=== PATIENT | female | born 1985 | race Caucasian/White ===

== ENCOUNTER 2017-03-10 00:51 | Emergency (ER) | payer OTHER ==
[2017-03-10] MEDS ORDERED: NORMAL SALINE 1000 ML 1,000 ML IV PRN (01:01)
--- NOTE | 2017-03-10 01:08 | ER Document Report ---
ED General - General Stated Complaint: POSSIBLE OD Time Seen by Provider: 03/10/17 00:59 Notes: Patient is a 31-year-old female presents with complaint of overdose. She is brought in by the ambulance. He was cured says it report is that she overdosed on cervical and baclofen. is at bedside. He informed me that the patient did overdose encircling back from. He says she recently got of alcohol rehabilitation. He says in the past when she does have excess alcohol she will overdose in his medications. He says it went to the store on 7 PM. When he came back she was sleeping, slurring her words. They went to sleep. He checked on her and she was poorly responsive and drooling and therefore she he called a wants. He said she took the medications somewhere between 7 and 8 PM. He says she does not have access to any other medications or drugs that he is aware of. He is unsure exactly how many she took. TRAVEL OUTSIDE OF THE [place] IN LAST 30 DAYS: No - Related Data Allergies/Adverse Reactions: sulfamethoxazole [From Bactrim] Allergy (Verified 12/13/15 21:41) trimethoprim [From Bactrim] Allergy (Verified 12/13/15 21:41) Past Medical History - Social History Smoking Status: Unknown if Ever Smoked Frequency of alcohol use: recent alcohol rehabilitation. Drug Abuse: Prescription drugs Family History: Reviewed & Not Pertinent Pulmonary Medical History: Reports: Hx Asthma Psychiatric Medical History: Reports: Hx Depression Review of Systems - Review of Systems -: Yes ROS unobtainable due to patient's medical condition - Patient is poorly responsive. Physical Exam - Vital signs Vitals: Resp 10 L 03/10/17 00:55 - Notes Notes: General Appearance: Well nourished, somnolent. When I did a sternal rub patient grabbed her arm and pushes it away. She will not follow verbal commands however she will pushes away and fight us some during exam. Vitals: reviewed, See vital signs table. Head: no swelling or tenderness to the head Eyes: PERRL, EOMI, Conjuctiva clear Mouth: No decreasd moisture Throat: No tonsillar inflammation, No airway obstruction, No lymphadenopathy Lungs: No wheezing, No rales, No rhonci, No accessory muscle use, good air exchange bilaterally. Heart: Tachycardic rate, Regular rythm, No murmur, no rub Abdomen: Normal BS, soft, No rigidity, No abdominal tenderness, No guarding, no rebound, no abdominal masses, no organomegaly Extremities: strength 5/5 in all extremities, good pulses in all extremities, no swelling or tenderness in the extremities, no edema. Skin: warm, dry, appropriate color, no rash Neuro: Somnolent. Patient does partially awaken with physical stimulation. She does move all extremities on her own. Remainder of her exam is unobtainable due to the patient not being cooperative and not following commands. Course - Re-evaluation Re-evalutation: 03/10/17 03:26 Patient continued become more more unresponsive. Now she would not respond to painful stimuli at all. My concern is that she is unable to protect her airway being that she will not respond at all to painful stimuli. We did elect to intubate the patient. I did speak with the hospitalist who says that we will probably have to transfer the patient because we do not have any ICU beds available. - Vital Signs Vital signs: Temp Pulse Resp BP Pulse Ox 98.8 F 14 130/68 H 97 03/10/17 03:56 03/10/17 03:56 03/10/17 03:56 03/10/17 03:56 - Laboratory Result Diagrams: 03/10/17 00:55 03/10/17 00:55 Laboratory results interpreted by me: 03/10/17 03/10/17 03/10/17 00:55 00:55 01:25 WBC 3.9 L Hct 35.2 L Monocytes % 1.9 L Sodium 146.7 H Carbon Dioxide 21 L Anion Gap 21 H Creatinine 1.73 H Est GFR ( Amer) 41 L Est GFR (Non-Af Amer) 34 L Glucose 167 H Urine Ketones TRACE H Salicylates < 1.0 L Acetaminophen < 10 L - EKG Interpretation by Me Additional EKG results interpreted by me: 03/10/17 01:08 EKG is reviewed and interpreted by me. EKG shows sinus tachycardia with rate of high [address] segment elevation or depression. No ischemic T wave inversions. LA interval, QRS duration are within normal range. QTc interval slightly prolonged. No old EKG available for comparison. - Transfer of Care Notes: 05/15/17 04:16 I did speak with Dr. Duran, die cutter apprentice [facility] , who agrees except patient for transfer. Patient is on the ventilator. She is on sedating medications. After intubation she did start to wake some. We have had the placement of the medications to help keep her sedated. Patient required intubation because she was somewhat the point where she does not respond to any painful stimuli and my fear was that she would not have been able to protect her airway to prevent aspiration if she were to vomit. I did initially speak with poison control. He said most likely patient to overdose on back on with her presenting symptoms and up being in a coma for approximately 2 days. He said that sometimes they can be mistaken is brain because they will lose reflexes. They're actually not brain . Symptoms usually resolve after 2 days. They said to keep the potassium magnesium within high normal range. They recommended to monitor the QTc interval. Dictation of this chart was performed using voice recognition software; therefore, there may be some unintended grammatical errors. 03/10/17 04:16 Procedures - Intubation Orotracheal Medications: Etomidate, Succinylcholine Intubation method: Orotracheal Blade size: 3 Equipment used: Glidescope ETT size: 7.5 Breath Sounds after Intubation: Equal End tidal CO2 confirmed: Yes Post Intubation Xray: Yes Intubation Complications: No complications Notes: 03/10/17 04:18 Intubation perforemd by GAGE Ham and was directly supervised by me. Critical Care Note - Critical Care Note Total time excluding time spent on procedures (mins): 45 Comments: Critical care time for this patient not including time spent on procedures is approximately 45 minutes due to frequent evaluations to monitor patient's protection of airway. Also due to discussions with specialists as well as patient's family. Also management of the date of medications once she was on the ventilator.
[2017-03-10 01:16] LABS: ABSOLUTE MONOCYTES (AUTO) 0.1 10^3/uL (0.1-1.4); ABSOLUTE NEUT (AUTO) 2.8 10^3/uL (1.7-8.2); BASOPHILS % (AUTO) 0.4 % (0-2); HEMATOCRIT 35.2 % (36.0-47.0); HGB HCT DIFFERENCE 0.8; LYMPHOCYTES % (AUTO) 25.9 % (13-45); MEAN CORPUSCULAR HEMOGLOBIN 31.6 pg (27.0-33.4); MEAN CORPUSCULAR HGB CONC 34.2 g/dL (32.0-36.0); MEAN CORPUSCULAR VOLUME 92 fl (80-97); MONOCYTES % (AUTO) 1.9 % (3-13); RED CELL DISTRIBUTION WIDTH 13.3 % (11.5-14.0); SEGMENTED NEUTROPHILS % (AUTO) 71.8 % (42-78); WHITE BLOOD COUNT 3.9 10^3/uL (4.0-10.5)
[2017-03-10 01:36] LABS: ALANINE AMINOTRANSFERASE 26 U/L (9-52); ALBUMIN 4.3 g/dL (3.5-5.0); ALCOHOL 15 mg/dL (NONE DETECTED); ALKALINE PHOSPHATASE 62 U/L (38-126); ANION GAP 21 (5-19); ASPARTATE AMINO TRANSFERASE 25 U/L (14-36); BILIRUBIN,DIRECT 0.3 mg/dL (0.0-0.4); BILIRUBIN,TOTAL 0.3 mg/dL (0.2-1.3); BLOOD UREA NITROGEN 10 mg/dL (7-20); CALCIUM 8.6 mg/dL (8.4-10.2); CARBON DIOXIDE 21 mmol/L (22-30); CHLORIDE 105 mmol/L (98-107); CREATININE RESULT 1.73 mg/dL (0.52-1.25); GLUCOSE 167 mg/dL (75-110); POTASSIUM 4.5 mmol/L (3.6-5.0); SODIUM 146.7 mmol/L (137-145); TOTAL PROTEIN 7.4 g/dL (6.3-8.2)
[2017-03-10 01:40] LABS: APPEARANCE,URINE CLEAR; BILIRUBIN,URINE NEGATIVE (NEGATIVE); GLUCOSE, URINE NEGATIVE (NEGATIVE); KETONES,URINE TRACE mg/dL (NEGATIVE); LEUKOCYTE ESTERASE,URINE NEGATIVE (NEGATIVE); NITRITE,URINE NEGATIVE (NEGATIVE); PROTEIN,URINE NEGATIVE (NEGATIVE); UROBILINOGEN,URINE NEGATIVE mg/dL (<2.0)
[2017-03-10 01:52] LABS: URINE BARBITURATES SCREEN NEGATIVE; URINE METHADONE SCREEN NEGATIVE; URINE OPIATES LOW NEGATIVE; URINE PHENCYCLIDINE SCREEN NEGATIVE
[2017-03-10] MEDS ORDERED: ETOMIDATE INJ/PF 20 MG/10 ML SDV IV ONE (02:46)
[2017-03-10] MEDS ORDERED: MIDAZOLAM HCL 100 ML IV ONE (02:59)
[2017-03-10] MEDS ORDERED: PROPOFOL INJ 200 MG/20 ML VIAL IV ONE ×2 (03:16→04:03)
[2017-03-10] MEDS ORDERED: MIDAZOLAM HCL 100 ML IV PRN (03:17)
[2017-03-10] MEDS ORDERED: MIDAZOLAM 2 MG/2 ML INJ IV ONE (03:17)
[2017-03-10] MEDS ORDERED: PROPOFOL 100 ML IV PRN (03:17)
[2017-03-10] MEDS ORDERED: PROPOFOL 100 ML IV ONE (03:20)
[2017-03-10 05:21] VITALS: BP 117/55
--- NOTE | 2017-03-10 08:38 | EKG REPORT ---
SEVERITY:- BORDERLINE ECG - SINUS TACHYCARDIA BORDERLINE PROLONGED QT INTERVAL : Confirmed by: Mere Reyes 10-Mar-2017 08:37:26
[2017-03-10] MEDS ORDERED: SUCCINYLCHOLINE CHLORIDE INJ 200 MG/10 ML VIAL ONE (09:23)
== END 2017-03-10 04:30 | disposition short-term general hospital (02) ==
LOC: ER 00:51
PROC: 0BH17EZ Insertion of Endotracheal Airway into Trachea, Via Natural or Artificial Opening (ICD-10-PCS; principal; 2017-03-10)
DX: T42.8X2A Poisoning by antiparkinsonism drugs and other central muscle-tone depressants, intentional self-harm, initial encounter (principal); T43.592A Poisoning by other antipsychotics and neuroleptics, intentional self-harm, initial encounter; R47.81 Slurred speech; Y92.009 Unspecified place in unspecified non-institutional (private) residence as the place of occurrence of the external cause; Z88.3 Allergy status to other anti-infective agents
CPT/HCPCS: 93005; 99291; 51702; 36415; 80307 ×4; 83735; 84703; 85025; 80053; 81001; 71010; 93010; 94003; 31500; J0330; J3490

== ENCOUNTER 2017-04-25 12:15 | Emergency (ER) | payer OTHER ==
[2017-04-25] MEDS ORDERED: NORMAL SALINE 1000 ML 1,000 ML IV ONE ×2 (12:29)
[2017-04-25 12:51] LABS: ABSOLUTE LYMPHOCYTES (AUTO) 1.5 10^3/uL (0.5-4.7); ABSOLUTE MONOCYTES (AUTO) 0.4 10^3/uL (0.1-1.4); ABSOLUTE NEUT (AUTO) 3.7 10^3/uL (1.7-8.2); BASOPHILS % (AUTO) 0.6 % (0-2); HEMATOCRIT 35.7 % (36.0-47.0); HEMOGLOBIN 12.3 g/dL (12.0-15.5); HGB HCT DIFFERENCE 1.2; LYMPHOCYTES % (AUTO) 26.7 % (13-45); MEAN CORPUSCULAR HEMOGLOBIN 30.9 pg (27.0-33.4); MEAN CORPUSCULAR HGB CONC 34.3 g/dL (32.0-36.0); MEAN CORPUSCULAR VOLUME 90 fl (80-97); MONOCYTES % (AUTO) 6.5 % (3-13); RED BLOOD COUNT 3.97 10^6/uL (3.72-5.28); RED CELL DISTRIBUTION WIDTH 13.6 % (11.5-14.0); SEGMENTED NEUTROPHILS % (AUTO) 66.2 % (42-78); VENOUS BLOOD BASE EXCESS 4.7 mmol/L; VENOUS BLOOD HCO3 27.9 mmol/L (20-32); VENOUS BLOOD PCO2 36.3 mmHg (35-63); VENOUS BLOOD PH 7.5 (7.30-7.42); WHITE BLOOD COUNT 5.7 10^3/uL (4.0-10.5)
[2017-04-25 13:12] LABS: ALANINE AMINOTRANSFERASE 28 U/L (9-52); ALBUMIN 4.6 g/dL (3.5-5.0); ALKALINE PHOSPHATASE 68 U/L (38-126); ANION GAP 14 (5-19); ASPARTATE AMINO TRANSFERASE 26 U/L (14-36); BILIRUBIN,DIRECT 0.3 mg/dL (0.0-0.4); BILIRUBIN,TOTAL 0.4 mg/dL (0.2-1.3); BLOOD UREA NITROGEN 8 mg/dL (7-20); CALCIUM 8.9 mg/dL (8.4-10.2); CARBON DIOXIDE 27 mmol/L (22-30); CHLORIDE 103 mmol/L (98-107); CREATININE RESULT 0.61 mg/dL (0.52-1.25); GLUCOSE 108 mg/dL (75-110); LIPASE 125.6 U/L (23-300); MAGNESIUM 1.8 mg/dL (1.6-2.3); POTASSIUM 3.8 mmol/L (3.6-5.0); SODIUM 144.1 mmol/L (137-145); TOTAL PROTEIN 7.9 g/dL (6.3-8.2)
[2017-04-25 13:16] LABS: ALCOHOL < 10 mg/dL (NONE DETECTED)
[2017-04-25 14:23] LABS: URINE BARBITURATES SCREEN NEGATIVE; URINE METHADONE SCREEN NEGATIVE; URINE OPIATES LOW NEGATIVE; URINE PHENCYCLIDINE SCREEN NEGATIVE
[2017-04-25 14:45] LABS: APPEARANCE,URINE CLOUDY; BILIRUBIN,URINE NEGATIVE (NEGATIVE); GLUCOSE, URINE NEGATIVE (NEGATIVE); KETONES,URINE 20 mg/dL (NEGATIVE); LEUKOCYTE ESTERASE,URINE NEGATIVE (NEGATIVE); NITRITE,URINE NEGATIVE (NEGATIVE); PROTEIN,URINE NEGATIVE (NEGATIVE); URINE SPECIFIC GRAVITY 1.006; UROBILINOGEN,URINE NEGATIVE mg/dL (<2.0)
[2017-04-25] MEDS ORDERED: ONDANSETRON HCL INJ/PF 4 MG/2 ML SDV IV ONE (16:11)
[2017-04-25] MEDS ORDERED: PROCHLORPERAZINE EDISYLATE INJ 10 MG/2 ML VIAL IV ONE (16:11)
[2017-04-25] MEDS ORDERED: LORAZEPAM 1 MG TABLET PO ONE (16:16)
--- NOTE | 2017-04-25 19:30 | ER Document Report ---
ED General - General Chief Complaint: Psych Problem Stated Complaint: PSYCH EVALUATION Time Seen by Provider: 04/25/17 12:24 TRAVEL OUTSIDE OF THE [place] IN LAST 30 DAYS: No - HPI Patient complains to provider of: Isopropyl alcohol ingestion and suicide attempt Notes: Plan after drinking isopropyl alcohol for the last 2 days. Patient states this was an attempt to harm herself. Patient denies any other coingestions. Patient has a history of overdoses in the past requiring transfer to NICU admissions along with intubations. Patient had multiple psych evaluation to the facility in the past to as well for suicidal ideation. Patient upon arrival , however easily arousable once aroused GCS is 15. Patient denies any other complaints. - Related Data Allergies/Adverse Reactions: sulfamethoxazole [From Bactrim] Allergy (Verified 12/13/15 21:41) trimethoprim [From Bactrim] Allergy (Verified 12/13/15 21:41) Past Medical History - Social History Smoking Status: Current Every Day Smoker Chew tobacco use (# tins/day): No Family History: Reviewed & Not Pertinent Pulmonary Medical History: Reports: Hx Asthma Psychiatric Medical History: Reports: Hx Depression Review of Systems - Review of Systems Constitutional: No symptoms reported EENT: No symptoms reported Cardiovascular: No symptoms reported Respiratory: No symptoms reported Gastrointestinal: No symptoms reported Genitourinary: No symptoms reported Female Genitourinary: No symptoms reported Musculoskeletal: No symptoms reported Skin: No symptoms reported Hematologic/Lymphatic: No symptoms reported Neurological/Psychological: Suicidal ideation -: Yes All other systems reviewed and negative Physical Exam - Vital signs Vitals: Resp BP Pulse Ox 10 L 121/70 98 04/25/17 12:25 04/25/17 12:25 04/25/17 12:25 Interpretation: Normal - General General appearance: Appears well, Alert - HEENT Head: Normocephalic, Atraumatic Eyes: Normal Pupils: PERRL - Respiratory Respiratory status: No respiratory distress Chest status: Nontender Breath sounds: Normal Chest palpation: Normal - Cardiovascular Rhythm: Regular Heart sounds: Normal auscultation Murmur: No - Abdominal Inspection: Normal Distension: No distension Bowel sounds: Normal Tenderness: Nontender Organomegaly: No organomegaly - Back Back: Normal, Nontender - Extremities General upper extremity: Normal inspection, Nontender, Normal color, Normal ROM , Normal temperature General lower extremity: Normal inspection, Nontender, Normal color, Normal ROM , Normal temperature, Normal weight bearing. No: Antonella's sign - Neurological Neuro grossly intact: Yes Cognition: Normal Orientation: AAOx4 Ashley Coma Scale Eye Opening: Spontaneous Ashley Coma Scale Verbal: Oriented [place] Coma Scale Motor: Obeys Commands Ashley Coma Scale Total: 15 Speech: Normal Motor strength normal: LUE, RUE, LLE, RLE Sensory: Normal - Psychological Associated symptoms: Normal affect, Normal mood - Skin Skin Temperature: Warm Skin Moisture: Dry Skin Color: Normal Course - Re-evaluation Re-evalutation: 04/25/17 19:29 Patient laboratory studies reveal a elevated serum osmole is causing a osmolar gap more likely due to isopropyl alcohol ingestion. Discussed with portion control agrees with supportive measures at this time. Patient was tachycardic started having nausea vomiting antiemetics and Ativan were given to the patient patient does have a history of alcohol abuse in the past will continue to monitor for any signs of other further details however patient is medically cleared this time for psychiatric evaluation. - Vital Signs Vital signs: Temp Pulse Resp BP Pulse Ox 97.8 F 107 H 17 116/70 100 04/25/17 12:27 04/25/17 12:27 04/25/17 14:01 04/25/17 14:00 04/25/17 14:01 - Laboratory Result Diagrams: 04/25/17 12:30 04/25/17 12:30 Laboratory results interpreted by me: 04/25/17 04/25/17 04/25/17 12:30 12:30 12:30 Hct 35.7 L VBG pH Serum Osmolality 354 H Urine Ketones Salicylates < 1.0 L Acetaminophen < 10 L 04/25/17 04/25/17 12:30 13:36 Hct VBG pH 7.50 H Serum Osmolality Urine Ketones 20 H Salicylates Acetaminophen Critical Care Note - Critical Care Note Total time excluding time spent on procedures (mins): 35 Comments: multiple Evaluations for isopropyl alcohol ingestion Discharge - Discharge Clinical Impression: Isopropyl alcohol ingestion, Suicidal ideation Nausea & vomiting Qualifiers: Vomiting type: unspecified Vomiting Intractability: unspecified Qualified Code( s): R11.2 - Nausea with vomiting, unspecified Condition: Good Disposition: PSYCH HOSP/UNIT
--- NOTE | 2017-04-25 20:56 | EKG REPORT ---
SEVERITY:- ABNORMAL ECG - SINUS TACHYCARDIA NONSPECIFIC REPOL ABNORMALITY, DIFFUSE LEADS : Confirmed by: Mere Reyes 25-Apr-2017 20:56:07
[2017-04-25] MEDS: LORAZEPAM 1 MG TABLET PO PRN (22:03)
[2017-04-26] MEDS: LORAZEPAM 1 MG TABLET PO PRN ×3 (06:08→15:54)
[2017-04-26] MEDS ORDERED: ACETAMINOPHEN 325 MG TABLET PO ONE (07:33)
--- NOTE | 2017-04-26 07:34 | ER Document Report ---
Doctor's Note Notes: 04/26/17 07:33 notified that patient was tachycardic at rest, she is at 99 on the monitor, denies any anxiety, sob, chest pain. admits to a mild headache, will give her tylenol
--- NOTE | 2017-04-26 10:18 | ER Document Report ---
ED Psych Disorder / Suicide - General TRAVEL OUTSIDE OF THE [place] IN LAST 30 DAYS: No <KIMLILY - Last Filed: 04/26/17 10:06> <ALMAZ DE LA VEGA - Last Filed: 04/26/17 12:52> - General Chief Complaint: Psych Problem Stated Complaint: PSYCH EVALUATION Time Seen by Provider: 04/25/17 12:24 - HPI Notes: pt presents to the ED today via ems for altered mental status. Per ems pt family called them this morning due to pt drinking rubbing alcohol for the past two days. pt currently confused but alert at this time. pt poor historian. per ems pt has a hx of suicidal ideations and was previously seen here for drinking rubbing alcohol. Clinician attempted phone call to patient's , Kendrick Cruz [phone], at [phone] no answer; left message. Patient placed on IVC at attending physician's request. Conducted evaluation 04/26/2017: Patient disclosed that she has been sober for 2 months and prior to that was in [facility] 1 [facility]. She states her had went to visit his body and his parents were here visiting. She states it was overwhelming and her is normally her "rock." Continued disclosed that she drank the rubbing alcohol because she had nothing else around to drink. Patient denies drinking rubbing alcohol was an attempt to hurt herself. Patient states she has drank rubbing alcohol in the past. She can she does not report taking any comments of wanting to hurt herself however it does not surprise her because she seems to say that she wants to hurt herself when she is drunk. She states that she could be having the best day started drinking and then stated that she wants to kill herself. Patient adamantly denies suicidal and homicidal ideation; "this was not a cry for help or me trying to get attention. Trying to forget for little bit." Patient disclosed that she does see mental health outpatient and goes to AA and NA twice a day. States her always drives her so cannot remember the name that she goes to for mental health however does know she goes to AA and NA at [facility]. Discussed optimism that she will sobriety again and states she hopes this is just a "bump. " Patient is alert and orientated to person, place, and time and circumstance. Mood is euthymic with congruent affect. Patient denies suicidal homicidal ideation. Patient denies auditory visual hallucinations patient is not demonstrating any behavior congruent with responding to internal stimuli. No delusions are noted. Thought process is currently organized and linear. Conversational speech was, tone and prosody. Eye contact was well-maintained. His abilities appear to be within average range. Attention and concentration are good. Insight, judgment and impulse control are historically poor. 303.90 (F10.20) alcohol use disorder; severe Impression\\plan: Patient is recommended for rescind of IVC and is considered psychiatrically clear for discharge. Patient no longer meets IVC criteria per [place] GS 122C. Patient had achieved 2 months sobriety after 1 month treatment however ended up having a lapse; since she was unable to obtain any alcohol, she drank rubbing alcohol. Patient denies suicidal/homicidal ideation. Patient is recommended to continue outpatient substance abuse treatment through [facility] and continues mental health services by her outpatient provider. Dr. Sanchez was consulted on the care and management of this patient; attending physician is agreement with recommendations and disposition. (LILY KIM) - Related Data Allergies/Adverse Reactions: sulfamethoxazole [From Bactrim] Allergy (Verified 12/13/15 21:41) trimethoprim [From Bactrim] Allergy (Verified 12/13/15 21:41) Past Medical History - Social History Smoking Status: Current Every Day Smoker Chew tobacco use (# tins/day): No Family History: Reviewed & Not Pertinent Pulmonary Medical History: Reports: Hx Asthma Psychiatric Medical History: Reports: Hx Depression <LILY KIM - Last Filed: 04/26/17 10:06> Course - Laboratory Result Diagrams: 04/25/17 12:30 04/25/17 12:30 <LILY KIM - Last Filed: 04/26/17 10:06> - Laboratory Result Diagrams: 04/26/17 11:45 04/26/17 11:45 <ALMAZ DE LA VEGA - Last Filed: 04/26/17 12:52> - Vital Signs Vital signs: Temp Pulse Resp BP Pulse Ox 98.5 F 107 H 22 H 130/78 H 96 04/26/17 06:00 04/25/17 12:27 04/26/17 06:01 04/26/17 06:11 04/26/17 06:11 - Laboratory Laboratory results interpreted by me: 04/25/17 04/25/17 04/25/17 12:30 12:30 12:30 RBC Hgb Hct 35.7 L VBG pH BUN Serum Osmolality 354 H Urine Ketones Salicylates < 1.0 L Acetaminophen < 10 L 04/25/17 04/25/17 04/26/17 12:30 13:36 11:45 RBC 3.63 L Hgb 11.3 L Hct 32.8 L VBG pH 7.50 H BUN Serum Osmolality Urine Ketones 20 H Salicylates Acetaminophen 04/26/17 04/26/17 11:45 11:45 RBC Hgb Hct VBG pH BUN 5 L Serum Osmolality 318 H Urine Ketones Salicylates Acetaminophen Discharge <LILY KIM - Last Filed: 04/26/17 10:06> <ALMAZ DE LA VEGA - Last Filed: 04/26/17 12:52> - Discharge Clinical Impression: Isopropyl alcohol ingestion, Alcohol abuse Nausea & vomiting Qualifiers: Vomiting type: unspecified Vomiting Intractability: unspecified Qualified Code( s): R11.2 - Nausea with vomiting, unspecified Clinical Impression: (Ruled Out): Suicidal ideation Condition: Good Disposition: HOME, SELF-CARE Additional Instructions: CHRONIC ALCOHOLISM and ALCOHOL ABUSE: Your evaluation reveals evidence of chronic alcoholism, an addiction to alcohol. The tendency to alcoholism may be inherited. Chronic use of alcohol weakens muscles, causes fatty deposits in the liver , damages the stomach, makes you more prone to infections, and can cause defects in unborn children. In the long run, brain atrophy and cirrhosis of the liver result. You are also at greater risk for certain types of cancer, such as cancer of the mouth, throat, stomach, and liver. Counselling services are available to help you. In-hospital treatment programs often help. Support groups such as Alcoholics Anonymous can be very useful in beating this addiction. Your physician can make a referral for you. As alcoholics often are prone to other addictions, you should discuss your use of any other medications with the doctor. ALCOHOL WITHDRAWAL: Your symptoms are caused by alcohol withdrawal. After a period of frequent drinking, the brain and body are changed by the alcohol. When you quit or reduce your drinking, the nervous system becomes unstable. Withdrawal symptoms can start a few hours after your last drink, but sometimes don't begin until a couple of days later. Symptoms can include shakiness, sweating, insomnia, nausea , vomiting, fearfulness, hallucinations, and seizures. In addition to the acute effects of alcohol withdrawal, we often have to deal with the medical effects of alcoholism. These problems often include dehydration, stomach irritation, intestinal bleeding, low blood sugar, liver disease, and pancreas inflammation. Treatment for alcohol withdrawal includes mild sedatives, vitamins, and fluids. You need to be with someone who can help if symptoms become severe. Many patients can withdraw at home. Admission to the hospital or a detox facility may be necessary if withdrawal symptoms are severe and uncontrollable. Abstaining from alcohol is the only effective long-term treatment. If you start drinking again, you will not be able to control yourself after the first drink. Treatment programs are available. In addition, many alcoholics benefit from Alcoholics Anonymous or other support groups available through your counselor or latter day mixing tumbler operator. [employer]-[facility] and [employer] are support groups for friends and family members of an alcoholic. Go to the emergency room if you develop persistent vomiting, severe abdominal pain, fever, shortness of breath, hallucinations, uncontrollable tremors, or seizures. FOLLOW-UP CARE: Please continue your outpatient services through your home mental health provider and with your substance abuse treatment provider, KAREEM, on 04/28/2017 at if you experience worsening or a significant change in your symptoms, notify the physician immediately or return to the Emergency Department at any time for re-evaluation. Referrals: [facility] [Outside] - 04/28/17
--- NOTE | 2017-04-26 11:13 | ER Document Report ---
Doctor's Note Notes: 04/26/17 11:13 Rounds: Chart reviewed and patient interview. Patient appears to be very cooperative and calm. Says she drank the rubbing alcohol because it was the only thing she had. Says she has not been drinking alcohol for the past 2 months. Patient not sure if she took the alcohol for harmful intent or just to get drunk. Feeling much better now and no longer nauseated or vomiting. The only significant abnormal lab study was serum osmolality which was somewhat elevated. I am going to repeat her lab studies and if they are okay, I think the patient will be medically cleared. Vital signs are all normal this morning. Otherwise, appears to be medically stable for transfer or discharge. Anne Marie Brian MD 04/26/17 13:59 Repeat CBC, comp 12, serum osmolality, all essentially normal. Although the osmolality remains slightly elevated it is significantly lower than it was on her initial lab assessment. Patient is medically stable for transfer or discharge. CARLOS EDUARDO
[2017-04-26 11:55] LABS: ABSOLUTE LYMPHOCYTES (AUTO) 1.7 10^3/uL (0.5-4.7); ABSOLUTE MONOCYTES (AUTO) 0.6 10^3/uL (0.1-1.4); ABSOLUTE NEUT (AUTO) 3.1 10^3/uL (1.7-8.2); BASOPHILS % (AUTO) 0.8 % (0-2); HEMATOCRIT 32.8 % (36.0-47.0); HEMOGLOBIN 11.3 g/dL (12.0-15.5); HGB HCT DIFFERENCE 1.1; LYMPHOCYTES % (AUTO) 31.8 % (13-45); MEAN CORPUSCULAR HEMOGLOBIN 31.1 pg (27.0-33.4); MEAN CORPUSCULAR HGB CONC 34.4 g/dL (32.0-36.0); MEAN CORPUSCULAR VOLUME 90 fl (80-97); MONOCYTES % (AUTO) 10.8 % (3-13); RED BLOOD COUNT 3.63 10^6/uL (3.72-5.28); RED CELL DISTRIBUTION WIDTH 13.4 % (11.5-14.0); SEGMENTED NEUTROPHILS % (AUTO) 56.6 % (42-78); WHITE BLOOD COUNT 5.4 10^3/uL (4.0-10.5)
[2017-04-26 12:13] LABS: ALANINE AMINOTRANSFERASE 29 U/L (9-52); ALBUMIN 4.4 g/dL (3.5-5.0); ALKALINE PHOSPHATASE 60 U/L (38-126); ANION GAP 12 (5-19); ASPARTATE AMINO TRANSFERASE 20 U/L (14-36); BILIRUBIN,DIRECT 0.2 mg/dL (0.0-0.4); BILIRUBIN,TOTAL 0.3 mg/dL (0.2-1.3); BLOOD UREA NITROGEN 5 mg/dL (7-20); CALCIUM 9.2 mg/dL (8.4-10.2); CARBON DIOXIDE 28 mmol/L (22-30); CHLORIDE 101 mmol/L (98-107); GLUCOSE 104 mg/dL (75-110); LIPASE 156.3 U/L (23-300); POTASSIUM 3.9 mmol/L (3.6-5.0); TOTAL PROTEIN 7.6 g/dL (6.3-8.2)
[2017-04-26 19:28] VITALS: BP 131/74
== END 2017-04-26 19:29 | disposition home or self-care (01) ==
LOC: ER 12:15
DX: T51.2X1A Toxic effect of 2-Propanol, accidental (unintentional), initial encounter (principal); R11.2 Nausea with vomiting, unspecified; R51 Headache; F10.10 Alcohol abuse, uncomplicated; R00.0 Tachycardia, unspecified; F17.200 Nicotine dependence, unspecified, uncomplicated; J45.909 Unspecified asthma, uncomplicated; Z88.1 Allergy status to other antibiotic agents
CPT/HCPCS: 93005; 99284; 96361; 51701; 96374; 96375; 36415; 80307 ×4; 83690; 83735; 83930; 85025; 81025; 80053; 81001; 82803; 83605; 93010; J0780; J2405; J7030

== ENCOUNTER 2017-06-04 21:54 | Emergency (ER) | payer OTHER ==
[2017-06-04] MEDS ORDERED: DIPH/PERTUSS(ACELL)/TETANUS VAC/PF 0.5 ML SYR (>=10YO) IM ONE (23:05)
[2017-06-04] MEDS ORDERED: LIDOCAINE 1% INJ-PF (10 MG/ML) 30 ML SDV INJ ONE (23:06)
--- NOTE | 2017-06-04 23:08 | ER Document Report ---
ED General - General Chief Complaint: Suicidal Ideation Stated Complaint: SUICIDAL IDEATIONS Time Seen by Provider: 06/04/17 22:55 Notes: Patient is a 31-year-old female who presents with complaints of self cutting. She denies being suicidal but says that she did not hurt herself and cutting. She can argue with the and then got an argument with her 's ex- girlfriend on the phone. She became very upset and cut herself. She does have a history of depression. She is on Effexor. Last tetanus shot was 7 years ago. She has no other complaints at this time. TRAVEL OUTSIDE OF THE [place] IN LAST 30 DAYS: No - Related Data Allergies/Adverse Reactions: sulfamethoxazole [From Bactrim] Allergy (Verified 06/04/17 22:28) trimethoprim [From Bactrim] Allergy (Verified 06/04/17 22:28) Home Medications: Current Home Medications Venlafaxine HCl [Venlafaxine HCl ER] 1 cap PO QAM 06/04/17 [History] Past Medical History - Social History Smoking Status: Unknown if Ever Smoked Frequency of alcohol use: None Drug Abuse: None Family History: Reviewed & Not Pertinent Patient has suicidal ideation: Yes Pulmonary Medical History: Reports: Hx Asthma Renal/ Medical History: Denies: Hx Peritoneal Dialysis Psychiatric Medical History: Reports: Hx Depression Review of Systems - Review of Systems Notes: My Normal Review Basic REVIEW OF SYSTEMS: CONSTITUTIONAL : Denies fever, chills, or sweats. Denies recent illness. EENT: Denies eye, ear, throat, or mouth pain or symptoms. Denies nasal or sinus congestion. RESPIRATORY: Denies cough, cold, or chest congestion. Denies shortness of breath, difficulty breathing, or wheezing. GASTROINTESTINAL: Denies abdominal pain. Denies nausea, vomiting, or diarrhea. MUSCULOSKELETAL: Denies neck or back pain or joint pain or swelling. SKIN: Denies rash or skin lesions. NEUROLOGICAL: Denies altered mental status or loss of consciousness. Denies headache. Denies weakness or paralysis or loss of use of either side. Denies problems with gait or speech. Denies sensory or motor loss. PSYCHIATRIC: Depression ALL OTHER SYSTEMS REVIEWED AND NEGATIVE. Physical Exam - Vital signs Vitals: Temp Pulse Resp BP Pulse Ox 98.3 F 96 15 124/71 97 06/04/17 22:29 06/04/17 22:29 06/04/17 22:29 06/04/17 22:29 06/04/17 22:29 - Notes Notes: General Appearance: Well nourished, alert, cooperative, no acute distress, no obvious discomfort. Vitals: reviewed, See vital signs table. Head: no swelling or tenderness to the head Eyes: PERRL, EOMI, Conjuctiva clear Mouth: No decreasd moisture Lungs: No wheezing, No rales, No rhonci, No accessory muscle use, good air exchange bilaterally. Heart: Normal rate, Regular rythm, No murmur, no rub Extremities: strength 5/5 in all extremities, good pulses in all extremities, multiple lacerations and right forearm. 3 will require sutures. The rest are superficial and do not require sutures. Laceration #1 is approximately 2 cm in length. Goes through just the dermis itself. Subcutaneous fat is visualized but does not appear to be penetrated. Laceration #2 is 1 cm in length. Laceration is just through the dermis. Laceration #3 is also 1 cm in length. It is also just to the dermis. No active bleeding., no edema. Patient is able to move all fingers in her hand without difficulty. She is good distal sensation. Good opposition of thumb with all fingers. Good flexion-extension. No neuro muscular deficits. Skin: warm, dry, appropriate color, no rash Neuro: speech clear, oriented x 3, normal affect, responds appropriately to questions. Course - Re-evaluation Re-evalutation: 06/05/17 06:11 I eventually spoke with the patient's . The patient's says that the patient's is not forthcoming as he feels should be. He says that he thinks that she is truly suicidal. He said that the car she admitted to him that she was suicidal. He says that she is unable to tolerate her emotional situations well and goes straight to trying to hurt herself. She says that this is the second time in 2 weeks that she is done something to try to hurt herself. At this time patient is medically stable for psychiatric evaluation. At this time patient is voluntary and does agree to stay and see psychiatry. She says that she wants to leave before psychiatry evaluates her she may need to be placed on involuntary commitment paperwork. Dictation of this chart was performed using voice recognition software; therefore, there may be some unintended grammatical errors. - Vital Signs Vital signs: Temp Pulse Resp BP Pulse Ox 97.8 F 84 16 122/73 98 06/05/17 05:57 06/05/17 05:57 06/05/17 05:57 06/05/17 05:57 06/05/17 05:57 - Laboratory Result Diagrams: 06/05/17 06:00 06/05/17 06:00 Laboratory results interpreted by me: 06/04/17 06/05/17 23:51 06:00 Hct 34.4 L Urine Ketones TRACE H - EKG Interpretation by Me Additional EKG results interpreted by me: 06/05/17 01:40 EKG is reviewed and interpreted by me. EKG shows normal sinus rhythm with rate of [address] segment elevation or depression. No ischemic T-wave inversions. SC interval, QRS duration, QTc intervals are within normal range. Old EKG for comparison is from April 25, 2017.
[2017-06-05 00:04] LABS: APPEARANCE,URINE CLEAR; BILIRUBIN,URINE NEGATIVE (NEGATIVE); GLUCOSE, URINE NEGATIVE (NEGATIVE); KETONES,URINE TRACE mg/dL (NEGATIVE); LEUKOCYTE ESTERASE,URINE NEGATIVE (NEGATIVE); NITRITE,URINE NEGATIVE (NEGATIVE); PROTEIN,URINE NEGATIVE (NEGATIVE); URINE SPECIFIC GRAVITY 1.002; UROBILINOGEN,URINE NEGATIVE mg/dL (<2.0)
[2017-06-05 00:42] LABS: URINE BARBITURATES SCREEN NEGATIVE; URINE METHADONE SCREEN NEGATIVE; URINE OPIATES LOW NEGATIVE; URINE PHENCYCLIDINE SCREEN NEGATIVE
[2017-06-05 06:08] LABS: ABSOLUTE LYMPHOCYTES (AUTO) 1.8 10^3/uL (0.5-4.7); ABSOLUTE MONOCYTES (AUTO) 0.6 10^3/uL (0.1-1.4); ABSOLUTE NEUT (AUTO) 3.3 10^3/uL (1.7-8.2); BASOPHILS % (AUTO) 0.8 % (0-2); EOSINOPHILS % (AUTO) 0.7 % (0-6); HEMATOCRIT 34.4 % (36.0-47.0); HEMOGLOBIN 12.1 g/dL (12.0-15.5); HGB HCT DIFFERENCE 1.9; LYMPHOCYTES % (AUTO) 31.2 % (13-45); MEAN CORPUSCULAR HEMOGLOBIN 31.5 pg (27.0-33.4); MEAN CORPUSCULAR HGB CONC 35.2 g/dL (32.0-36.0); MEAN CORPUSCULAR VOLUME 90 fl (80-97); MONOCYTES % (AUTO) 9.7 % (3-13); RED BLOOD COUNT 3.84 10^6/uL (3.72-5.28); SEGMENTED NEUTROPHILS % (AUTO) 57.6 % (42-78); WHITE BLOOD COUNT 5.8 10^3/uL (4.0-10.5)
[2017-06-05 06:32] LABS: ALANINE AMINOTRANSFERASE 37 U/L (9-52); ALBUMIN 4.6 g/dL (3.5-5.0); ALKALINE PHOSPHATASE 76 U/L (38-126); ANION GAP 12 (5-19); ASPARTATE AMINO TRANSFERASE 28 U/L (14-36); BILIRUBIN,DIRECT 0.3 mg/dL (0.0-0.4); BILIRUBIN,TOTAL 0.3 mg/dL (0.2-1.3); BLOOD UREA NITROGEN 15 mg/dL (7-20); CALCIUM 8.9 mg/dL (8.4-10.2); CARBON DIOXIDE 24 mmol/L (22-30); CHLORIDE 108 mmol/L (98-107); CREATININE RESULT 0.78 mg/dL (0.52-1.25); GLUCOSE 89 mg/dL (75-110); POTASSIUM 4.7 mmol/L (3.6-5.0); SODIUM 144.1 mmol/L (137-145); TOTAL PROTEIN 7.8 g/dL (6.3-8.2)
[2017-06-05 06:33] LABS: ALCOHOL < 10 mg/dL (NONE DETECTED)
--- NOTE | 2017-06-05 10:00 | ER Document Report ---
Doctor's Note Notes: 06/05/17 09:59 Rounds: Chart reviewed and patient interviewed. Vital signs are all normal. Lab studies have been negative. Patient seems quiet and perhaps somewhat depressed. Patient is medically stable for transfer or discharge. Anne Marie Brian MD 06/05/17 12:27 Patient has been accepted for transfer and admission at [facility].
[2017-06-05 12:52] VITALS: BP 118/71
--- NOTE | 2017-06-05 13:06 | ER Document Report ---
ED Psych Disorder / Suicide - General Chief Complaint: Suicidal Ideation Stated Complaint: SUICIDAL IDEATIONS Time Seen by Provider: 06/04/17 22:55 TRAVEL OUTSIDE OF THE [place] IN LAST 30 DAYS: No - HPI Notes: Patient is a 31-year-old female who presents with complaints of self cutting. She denies being suicidal but says that she did not hurt herself and cutting. She can argue with the and then got an argument with her 's ex- on the phone. She became very upset and cut herself. She does have a history of depression. She is on Effexor. Patient disclosed she was upset and cut herself for "release." Patient stated "I wasn't trying to kill myself." Patient will not discuss what triggered the event. Patient confirmed she has a history of cutting;clinician observed multiple scars on patient's arms, to include one scar that is approximately half inch wide going across her wrist. Patient stated she normally never receives medical assistance after cutting; however, confirmed the scar (half- inch wide one) probably needed stitches. Patient disclosed that she receives her Effexor from [facility]; her last appointment was approximately 2 weeks ago. Patient has not received any therapeutic intervention other than medication management. Patient states that she has not drank since the last time she was here (clinician notes patient came to [facility] ED for drinking rubbing alcohol ). Patient's disclosed the patient has not going to NA/AA. He reports the patient does have history of cutting however "what she did last night was not normal...Normally it is light." He disclosed he thinks the last time the patient drank was about 1 month ago. He continued to state "when she is not drinking she engages in self-harm and bulimia." 296.80 (F31.9) unspecified bipolar and related disorder R/O substance abuse (alcohol) Impression\\plan: Patient is recommended for IVC. Patient engaged in self-harm and while denies suicide attempt patient had 3 different laceration which required a total 12 stitches on her mid-inner arm. When patient came into [facility] ED on 04/25/2017 she reported alcoholism and drinking rubbing alcohol because it was the only alcohol she could find; this report is now questionable to patient' s (and 's) report of not drinking since then and not going to any of her na/aa meetings. Patient is a danger to herself and appears to actively suicidal. Dr. Sanchez was consulted on the care and management of this patient ; attending physician is in agreement with recommendations and disposition. Patient accepted to [facility]- Transportation will occur today. - Related Data Allergies/Adverse Reactions: sulfamethoxazole [From Bactrim] Allergy (Verified 06/04/17 22:28) trimethoprim [From Bactrim] Allergy (Verified 06/04/17 22:28) Home Medications: Current Home Medications Venlafaxine HCl [Venlafaxine HCl ER] 1 cap PO QAM 06/04/17 [History] Past Medical History - Social History Smoking Status: Unknown if Ever Smoked Frequency of alcohol use: None Drug Abuse: None Family History: Reviewed & Not Pertinent Patient has suicidal ideation: Yes Pulmonary Medical History: Reports: Hx Asthma Renal/ Medical History: Denies: Hx Peritoneal Dialysis Psychiatric Medical History: Reports: Hx Depression Physical Exam - Vital signs Vitals: Temp Pulse Resp BP Pulse Ox 98.3 F 96 15 124/71 97 06/04/17 22:29 06/04/17 22:29 06/04/17 22:29 06/04/17 22:29 06/04/17 22:29 Course - Vital Signs Vital signs: Temp Pulse Resp BP Pulse Ox 98.7 F 97 16 118/71 98 06/05/17 12:51 06/05/17 12:51 06/05/17 12:51 06/05/17 12:51 06/05/17 12:51 - Laboratory Result Diagrams: 06/05/17 06:00 06/05/17 06:00 Laboratory results interpreted by me: 06/04/17 06/05/17 06/05/17 23:51 06:00 06:00 Hct 34.4 L Chloride 108 H Urine Ketones TRACE H Salicylates < 1.0 L Acetaminophen < 10 L
--- NOTE | 2017-06-05 13:30 | EKG REPORT ---
SEVERITY:- NORMAL ECG - SINUS RHYTHM : Confirmed by: Mere Reyes 05-Jun-2017 13:28:35
== END 2017-06-05 12:46 ==
LOC: ER 21:54
PROC: 0HQDXZZ Repair Right Lower Arm Skin, External Approach (ICD-10-PCS; principal; 2017-06-04)
DX: F32.9 Major depressive disorder, single episode, unspecified (principal); S51.811A Laceration without foreign body of right forearm, initial encounter; X78.1XXA Intentional self-harm by knife, initial encounter; J45.909 Unspecified asthma, uncomplicated; Z79.899 Other long term (current) drug therapy; Z88.1 Allergy status to other antibiotic agents
CPT/HCPCS: 93005; 99285; 90471; 36415; 80307 ×4; 84703; 85025; 80053; 81001; 90715; 93010; 12001; J3490

== ENCOUNTER 2017-07-18 10:14 | Emergency (ER) | payer OTHER ==
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
[2017-07-18] MEDS ORDERED: LIDOCAINE 1% INJ-PF (10 MG/ML) 30 ML SDV INJ ONE (10:42)
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
[2017-07-18 11:13] LABS: APPEARANCE,URINE CLEAR; BILIRUBIN,URINE NEGATIVE (NEGATIVE); GLUCOSE, URINE NEGATIVE (NEGATIVE); KETONES,URINE NEGATIVE (NEGATIVE); LEUKOCYTE ESTERASE,URINE NEGATIVE (NEGATIVE); NITRITE,URINE NEGATIVE (NEGATIVE); PROTEIN,URINE NEGATIVE (NEGATIVE); URINE SPECIFIC GRAVITY 1.017; UROBILINOGEN,URINE NEGATIVE mg/dL (<2.0)
[2017-07-18 11:30] LABS: URINE BARBITURATES SCREEN NEGATIVE; URINE METHADONE SCREEN NEGATIVE; URINE OPIATES LOW NEGATIVE; URINE PHENCYCLIDINE SCREEN NEGATIVE
[2017-07-18 11:36] VITALS: BP 104/52
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
== END 2017-07-18 11:30 | disposition home or self-care (01) ==
LOC: ER 10:14
PROC: 0HQLXZZ Repair Left Lower Leg Skin, External Approach (ICD-10-PCS; principal; 2017-07-18)
DX: S81.812A Laceration without foreign body, left lower leg, initial encounter (principal); W26.0XXA Contact with knife, initial encounter; J45.909 Unspecified asthma, uncomplicated; Y93.89 Activity, other specified; Z91.5 Personal history of self-harm; Z88.1 Allergy status to other antibiotic agents
CPT/HCPCS: 12002; 99285; 81001; 80307; J3490

== ENCOUNTER 2017-07-24 15:08 | Emergency (ER) | payer OTHER ==
[2017-07-24 15:14] VITALS: BP 102/67
[2017-07-24] MEDS ORDERED: TRAMADOL HCL 50 MG TABLET PO ONE (15:33)
--- NOTE | 2017-07-24 15:33 | ER Document Report ---
ED Extremity Problem, Lower - General Chief Complaint: Leg Pain Stated Complaint: LEFT LEG SWELLING/PAIN Time Seen by Provider: 07/24/17 15:19 Notes: Patient is a 31-year-old female who returns emergency department after an evaluation on July 18 for a left medial calf laceration. Patient states that she has had worsening pain of her left ankle with bruising and swelling since this incident. Otherwise she denies any drainage from the wound. She denies any fevers, chills, redness around the site. States she has been taking Motrin for pain. TRAVEL OUTSIDE OF THE [place] IN LAST 30 DAYS: No - Related Data Allergies/Adverse Reactions: sulfamethoxazole [From Bactrim] Allergy (Verified 07/24/17 15:12) trimethoprim [From Bactrim] Allergy (Verified 07/24/17 15:12) Past Medical History - Social History Smoking Status: Unknown if Ever Smoked Family History: Reviewed & Not Pertinent Pulmonary Medical History: Reports: Hx Asthma Renal/ Medical History: Denies: Hx Peritoneal Dialysis Psychiatric Medical History: Reports: Hx Depression Review of Systems - Review of Systems Constitutional: No symptoms reported Musculoskeletal: See HPI -: Yes All other systems reviewed and negative Physical Exam - Vital signs Vitals: Temp Pulse Resp BP Pulse Ox 98.7 F 73 14 102/67 98 07/24/17 15:12 07/24/17 15:12 07/24/17 15:12 07/24/17 15:12 07/24/17 15:12 - Notes Notes: PHYSICAL EXAM GENERAL: Alert, interacts well. LUNGS: Clear to auscultation bilaterally, no wheezes, rales, or rhonchi. No respiratory distress. HEART: Regular rate and rhythm. No murmurs, gallops, or rubs. EXTREMITIES: Moves all 4 extremities spontaneously. radial and dorsalis pedis pulses 2/4 bilaterally. No cyanosis. Negative Homans sign NEUROLOGICAL: Alert and oriented x4. Normal speech. PSYCH: Normal affect, normal mood. SKIN: Warm, dry, normal turgor. Mild ecchymosis noted at the left ankle and left foot with mild edema no evidence of pitting edema. Course - Re-evaluation Re-evalutation: 07/24/17 17:20 Patient is a 31-year-old female hemodynamically stable, no acute distress and afebrile. No evidence of DVT or vascular changes noted on ultrasound. Patient able to ambulate without any difficulty. No evidence of deformity. Patient to follow-up with primary care. Otherwise stable for discharge. - Vital Signs Vital signs: Temp Pulse Resp BP Pulse Ox 98.7 F 73 14 102/67 98 07/24/17 15:12 07/24/17 15:12 07/24/17 15:12 07/24/17 15:12 07/24/17 15:12 - Diagnostic Test Radiology reviewed: Reports reviewed Discharge - Discharge Clinical Impression: Ankle swelling Qualifiers: Laterality: left Qualified Code(s): M25.472 - Effusion, left ankle Condition: Good Disposition: HOME, SELF-CARE Instructions: [facility] ([facility]), [facility] ([facility]), [facility] ([facility])
--- NOTE | 2017-07-24 16:42 | XCELERA REPORT ---
[address] [id number] Lower Extremity Venous Evaluation Name: OLIVIA STERLING Age: 31 yrs Gender: Female : 1985 Patient Status: Preadmit Patient Location: ER Study Date: 07/24/2017 04:13 PM Procedure: Color flow and duplex imaging of the veins of the left lower extremity as well as the right Common Femoral vein. Reason For Study: swelling, tenderness LLE Ordering Physician: PANKAJ MCDONALD PA-C Performed By: Alfie Watts Right Sided Venous Evaluation The right common femoral vein is fully compressible. Spontaneous and phasic flow is present in the right common femoral vein. Left Sided Venous Evaluation Normal vessel filling wall to wall, compression and augmentation as well as Colour flow down to the infrageniculate veins. Interpretation Summary No duplex evidence of DVT or obstruction in the left lower extremity nor in the right Common Femoral vein. : PANKAJ MCDONALD PA-C > Vlad Lima
== END 2017-07-24 17:04 | disposition home or self-care (01) ==
LOC: ER 15:08
DX: M25.472 Effusion, left ankle (principal); M79.605 Pain in left leg; Z88.3 Allergy status to other anti-infective agents
CPT/HCPCS: 93971; 99283